=== PATIENT | female | born 1985 | race Caucasian/White ===

== ENCOUNTER 2018-12-06 14:13 | Emergency (ER) | payer OTHER, SELFPAY ==
[2018-12-06 14:51] LABS: #Basophils 0.1 thou/uL (0.0-0.2); #Eosinphils 0.2 thou/uL (0.0-0.7); #Monocytes 0.5 thou/uL (0.11-0.59); #Neutrophils 5.8 thou/uL (1.40-6.50); %Basophils 0.6 % (0.0-1.0); %Eosinophils 2.1 % (0.0-10.0); %Lymphocytes 23.2 % (21.0-51.0); %Monocytes 5.9 % (0.0-10.0); %Neutrophils 68.2 % (42.0-75.0); Mean Corpuscular Hemoglobin 30.5 pg (27.0-31.0); Mean Corpuscular Volume 89.8 fL (78.0-98.0); Mean Platelet Volume 8.2 fL (7.4-10.4); Platelet Count 317 thou/uL (130-400); RBC Distribution Width 11.5 % (11.5-14.5); Red Blood Cell (RBC) Count 4.26 mill/uL (4.20-5.40); White Blood Cell (WBC) Count 8.5 thou/uL (4.8-10.8)
[2018-12-06 15:14] LABS: ALT (SGPT) 12 U/L (8-55); AST (SGOT) 13 U/L (5-34); Alkaline Phosphatase 112 U/L (40-150); Anion Gap 9 mmol/L (10-20); BUN (Urea Nitrogen) 14 mg/dL (7.0-18.7); Bilirubin, Total 0.3 mg/dL (0.2-1.2); Calc. Creatinine Clearance 0 mL/min (70-130); Calcium 9.4 mg/dL (7.8-10.44); Carbon Dioxide 26 mmol/L (22-29); Chloride 105 mmol/L (98-107); Estimated GFR-MDRD 78; Globulin 3.1 g/dL (2.4-3.5); Glucose 98 mg/dL (70-105); Protein, Total 7.1 g/dL (6.0-8.3); Sodium 136 mmol/L (136-145)
[2018-12-06] MEDS ORDERED: HYDROcodone/Acetaminophen 5/325 mg Tablet ONE (15:48)
[2018-12-06] MEDS ORDERED: Ondansetron ODT 4 MG TAB ONE (16:05)
[2018-12-06 16:38] LABS: Bilirubin Negative (Negative); Blood, Urine Negative (Negative); Clarity Clear (Clear); Glucose, Urine (Dipstick) Normal (Negative); Leukocyte Negative Leu/uL (Negative); Nitrite Negative (Negative); Protein, Urine (Dipstick) Negative (Neg-Trace); Urobilinogen Normal mg/dL (Less than 2)
[2018-12-06 16:40] LABS: Pregnancy Test - Urine (BHCG) Negative (Negative); Pregu Control Background? CLEAR/WHITE (CLR/WHITE); Pregu Control Bar Appear? YES (CONTROL BAR); Specific Gravity 1.026 (1.002-1.036)
--- NOTE | 2018-12-06 17:20 | CT ---
CT FACE WITHOUT CONTRAST: Date: 12/06/18 HISTORY: Syncope. Injury. Right face pain. COMPARISON: None. FINDINGS: Globes are intact. No retrobulbar hematoma. Periorbital soft tissues unremarkable. The paranasal sinuses and mastoids are clear. Anteriorly subluxed right temporomandibular joint likel y positional in nature. Nasal bones are intact. Osseous nasal septum is intact. The medial orbital wise, lateral orbital wal ls, orbital floors, and orbital roofs are intact. Extensive mandibular and maxillary dental cavities. Skull base is intact. Debris within the sphenoid sinus. Mild thickening left maxillary sinus mucosa caudally. IMPRESSION: 1. No acute fracture of the face. 2. Mild sphenoid sinusitis. 3. Thickening of the left caudal maxillary sinus mucosa with impaction of the left maxillary molars, likely reactive in nature. 4. 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 5. Left cheek anterior subcutaneous fat soft tissue contusion with intact zygoma. POS: CET
--- NOTE | 2018-12-11 14:12 | EKG ---
Test Reason : Blood Pressure : / mmHG Vent. Rate : 069 BPM Atrial Rate : 069 BPM P-R Int : 146 ms QRS Dur : 108 ms QT Int : 408 ms P-R-T Axes : 021 021 035 degrees QTc Int : 437 ms Normal sinus rhythm Incomplete right bundle branch block Borderline ECG Confirmed by TAMIKA HALE ([id number]), editor city JIMY SAMUELS ([id number]) on 12/11/2018 2:12:36 PM Referred By: Confirmed By:TAMIKA AHLE
== END 2018-12-06 17:45 | disposition home or self-care (01) ==
LOC: ERS 14:13
DX: S00.83XA Contusion of other part of head, initial encounter (principal); R55 Syncope and collapse; Z79.899 Other long term (current) drug therapy; W22.8XXA Striking against or struck by other objects, initial encounter
CPT/HCPCS: 36415; 70486; 80053; 81003; 81025; 85025; 93005; Q0162